=== PATIENT | male | born 1960 | race Caucasian/White ===

== ENCOUNTER 2025-03-18 12:35 | Emergency (ER) | payer OTHER, SELFPAY ==
[2025-03-18 12:52] VITALS: BP 148/65; PULSE 64; TEMP 37.1; O2SAT 98; BMI 36.3
--- NOTE | 2025-03-18 12:59 | XR_ITS ---
[address] [address] Patient Name: HANK CORRAL MRN: [id number] date: 1960 Sex: M Assigned Patient Location: ED.MAIN Current Patient Location: ED.MAIN Accession/Order Number: [id number] Exam Date: 03/18/2025 13:27 Report Date: 03/18/2025 14:12 At the request of: APRIL HERNANDEZ DO Procedure: XR knee RT 4V 4 views right knee plain film COMPARISON: None HISTORY: Right knee pain. Popping sensation. ACUTE FINDINGS: No acute findings DEGENERATIVE CHANGE: Mild degenerative changes SOFT TISSUE FINDINGS: Unremarkable JOINT EFFUSION: None POSTOP CHANGES: None BONE MINERALIZATION: Adequate XR/XR knee RT 4V IMPRESSION: No acute findings Impression dictated by: Yair Burr M.D. 03/18/2025 2:12 PM Dictation Location: [facility] Electronically authenticated by: [id number] Y Date: 03/18/2025 14:12
--- OUTSIDE RECORDS SUMMARY | 2025-03-18 13:30 | XMS_ITS | Clinical Summary ---
Author Organization [employer] tem Address [id number] [address] [place] [address] Care Team Providers Care Employment Evaluator/Case Manager Name Role Phone Lissy Schwartz MD Primary Care Provider [phone] Allergies Active AllergyReactionsCriticalityNoted AjxpKywrqrzrDjkaojdeeka83/23/2017 Pt said he has had since childhood, unsure of reaction Medications MedicationSigDispense QuantityRefillsLast FilledStart DateEnd DateStatus simvastatin (ZOCOR) 40 mg tablet Take 1 tablet (40 mg total) by mouth nightly.Active insulin aspart U-100 (NovoLOG) 100 unit/mL (3 mL) insulin pen Inject under the skin. SLIDING SCALE: BELOW 120=NO 120-175=3U 175-225=6U 225-UP=8UActive lisinopril (PRINIVIL,ZESTRIL) 40 mg tablet Take 1 tablet (40 mg total) by mouth in the morning.Active pen needle, diabetic 32 gauge x 1/6 needle by miscellaneous route. 1 injection 4x dailyActive cholecalciferol, vitamin D3, 25 mcg (1,000 unit) capsule Take 1 capsule (1,000 Units total) by mouth in the morning.Active cinnamon bark 500 mg capsule Take 1 capsule (500 mg total) by mouth in the morning.Active omega 7-qdz-bis-fish oil (FISH OIL) 1,000 mg (120 mg-180 mg) capsule Take 1 capsule by mouth in the morning.Active coenzyme Q10 100 mg capsule Take 1 capsule (100 mg total) by mouth in the morning.Active multivit-mins/iron/folic/lycop (CENTRUM MEN ORAL) Take by mouth.Active potassium 99 mg tablet Take 1 tablet (99 mg total) by mouth in the morning.Active insulin glargine (LANTUS, BASAGLAR) 100 unit/mL (3 mL) insulin pen Pt reports current dose = 25 units in the AM, 31 units at bedtimeActive semaglutide 1 mg/dose (2 mg/1.5 mL) pen injector Inject 1 mg under the skin every 7 days. Active blood-glucose sensor (DEXCOM G6 SENSOR MISC) by miscellaneous route. As directed to monitor blood sugarActive blood-glucose transmitter (DEXCOM G6 TRANSMITTER MISC) by miscellaneous route. As directed to monitor blood sugarActive pioglitazone (ACTOS) 15 mg tablet Take 1 tablet (15 mg total) by mouth in the morning.1Active latanoprost (XALATAN) 0.005 % ophthalmic solution 1 drop nightly.Active Active Problems ProblemNoted DateDiagnosed DateType 1 diabetes mellitus without complication 2Diabetes fehesbno03/28/2020 Immunizations ImmunizationAdministration DatesNext DueCovid-19, Mrna, Lnp-s, Bivalent, Pf, 50mcg/0.5ml or 25mcg/0.25ml03/13/2022Influenza, Injectable, Mdck, Preservative Free, Quad11/16/2021,02/01/2021Influenza, Sdzicgbhyrm80/29/2020,01/19/2019 Pneumococcal, Tjvzomylzed75/29/2013 Family History Medical HistoryRelationNameCommentsDepressionDaughterCancerFatherSKINDiabetes FatherHeart diseaseFatherHypertensionFatherHypertensionMotherThyroid disease MotherDepressionSonRelationNameStatusCommentsDaughterFatherMotherSon Social History Tobacco UseTypesPacks/DayYears UsedDateSmoking Tobacco: ImdkcaIvrpdtzojk4Jfmt: 10/18/2012Smokeless Tobacco: NeverAlcohol UseStandard Drinks/WeekCommentsYes0 (1 standard drink = 0.6 oz pure alcohol)ChildcareAnswerDate RecordedChildcare Qqbimog7609/01/2018EmploymentAnswerDate HfsnknsbFpmqmbmuasNjsmtpv84/12/2019Purpose - LifeAnswerDate RecordedPurpose and direction in qumzWsxietu39/28/2021ex and Gender InformationValueDate RecordedSex Assigned at CbijuCtxc68/28/2020 12:15 PM EDTLegal YmpIkzl5410/26/2014 11:45 AM EDTGender PslgmrrrSwbi07/28/2020 12:15 PM EDTSexual VpciqqhuymcUsuixork04/28/2020 12:15 PM EDT Last Filed Vital Signs Vital SignReadingTime TakenCommentsBlood Zzbqfuhc145/70004/30/2022 9:22 AM EST Pjrus047504/30/2022 9:22 AM ESTTemperature--Respiratory Rate--Oxygen Saturation-- Inhaled Oxygen Concentration--Thbiar611.2 kg (265 lb)04/30/2022 9:22 AM EST Qliote918.8 cm (5' 10 )04/30/2022 9:22 AM ESTBody Mass Index38.02004/30/2022 9:22 AM EST Plan of Treatment Health MaintenanceDue DateLast DoneCommentsStatin Use: Xsbocaoo80/06/1961 Depression Nbtxfmosu28/06/1973Tobacco Kyrnrsqfm47/06/1973DTaP,Tdap and Td Vaccines (1 - Tdap)06/27/1979RSV ( or age 60+ yrs) (1 - Risk 50-74 years 1-dose series)2010Zoster (Shingles) Vaccine (1 of 2)2010Diabetic Foot ExamDiabetic Ophthalmology Exam/03/2022, 05/17/2021, 04/25/2020, Additional history existsAdult BMI Goljdrdsb66/08/2024 04/30/2022OVID-19 Vaccine ( season)/, 02/11/2021, 07/04/2020, Additional history existsInfluenza Pibhkuc21/02/2024, 03/19/2023, 11/16/2021, Additional history exists Medical Devices Not on file Procedures Procedure NamePriorityDate/TimeAssociated DiagnosisCommentsHM DIABETES EYE EXAM Tdwbinp8604/23/2022HM DIABETES FOOT TNNUMvoyamr56/14/2019from Last 3 Months or Most Recently Relevant to Health Maintenance Results * DIABETES EYE EXAM (04/23/2022)Specimen (Source)Anatomical Location / LateralityCollection Method / VolumeCollection TimeReceived Time04/23/2022 Narrative Authorizing ProviderResult TypeResult StatusScanning Provider ExternalHEALTH MAINTENANCEFinal ResultPerforming OrganizationAddressCity/State/ZIP CodePhone Number MANUALLY TRANSCRIBED RESULTS * DIABETES FOOT EXAM (01/03/2019)Specimen (Source)Anatomical Location / LateralityCollection Method / VolumeCollection TimeReceived Time01/03/2019 Narrative Authorizing ProviderResult TypeResult StatusTondrjair Martinez LOOM MECHANIC-NPHEALTH MAINTENANCEEdited Result - FinalPerforming OrganizationAddressCity/State/ZIP CodePhone Number MANUALLY TRANSCRIBED RESULTS from Last 3 Months or Most Recently Relevant to Health Maintenance Insurance Care Teams Team MemberRelationshipSpecialtyStart DateEnd Lissy Schwartz MD [address] [place] [address] PCP - GeneralFamily Medicine07/06/24
--- OUTSIDE RECORDS SUMMARY | 2025-03-18 13:30 | XMS_ITS | Clinical Summary ---
Author Organization [facility] Address [address] [place] [address] Care Team Providers Care Childbirth Educator Name Role Phone Lissy Schwartz MD Primary Care Provider [phone] Allergies Active AllergyReactionsCriticalityNoted DateCommentsMetformin [facility]11/25/2022 Other Reaction(s): diarrhea LoxfeypxqevMmbfUvu51/23/2017 Pt said he has had since childhood, unsure of reaction Medications MedicationSigDispense QuantityRefillsLast FilledStart DateEnd DateStatus cholecalciferol (Vitamin D-3) 25 MCG (1000 UT) capsule Take 1,000 Units by mouth in the morning.Active cinnamon 500 MG capsule OrallyActive coenzyme Q-10 100 MG capsule Take 100 mg by mouth in the morning.Active ibuprofen 200 MG tablet every 8 (eight) hours.Active Insulin Infusion Pump Supplies (AutoSoft XC Infusion Set) [facility] 10/25/2022ctive Insulin Infusion Pump Supplies (T:slim X2 3mL Cartridge) [facility] 10/25/2022ctive Multiple Vitamins-Minerals (Centrum Men) tablet OrallyActive omega-3 (Fish Oil) 1000 MG capsule 1 capsule 1 (one) time each day at the same time.Active Potassium Gluconate 2.5 MEQ tablet Take 99 mg by mouth in the morning.Active Basaglar KwikPen 100 UNIT/ML pen PLEASE SEE ATTACHED FOR DETAILED TLOZJCURPY61/27/2025Active Insulin Lispro 100 UNIT/ML solution Per pump06/14/2024tive Continuous Glucose Sensor (Dexcom G7 Sensor) [facility] 06/28/2021ctive Ozempic, 2 MG/DOSE, 8 MG/3ML solution pen-injector INJECT 2 MG (0.75 ML) SUBCUTANEOUSLY EVERY WEEK5Active hbwdnaty-goylypzyy-nehNJNALcwnsl (Maxitrol) 0.1 % ophthalmic suspension Indications:Acute otitis externa of right ear, unspecified type4 drop right ear tid x 7 days 10 mL 5Active lisinopril 40 MG tablet Indications:Essential (primary) hypertensionTake 1 tablet (40 mg) by mouth in the morning. 90 tablet 1115Active simvastatin (Zocor) 40 MG tablet Indications:Mixed hyperlipidemiaTake 1 tablet (40 mg) by mouth in the evening 90 tablet 110503/6Active Active Problems ProblemNoted DateDiagnosed DateFormer cigarette zkmwqp1506/14/2024Glaucoma, right eye06/14/2024 Overview (07/06/2024): Member reports he follows with ophthalmology Routine health eakvjkkqsqa27/25/2025Takes dietary reuudrazssg54/25/2025Vitamin D logfkpvfch91/25/2025Mixed bcmnajtgqyqipf25/05/5468Ayuvfzo13/05/2023rimary ykrfvlfojcqa12/05/2023Mixed diabetic hyperlipidemia associated with type 1 diabetes oddvmmrv09/05/2023Type 1 diabetes mellitus without complication, 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10/25/2021 Resolved Problems ProblemNoted DateDiagnosed DateResolved DateType 2 diabetes mellitus without zuxpojbhtlunc63/05/202304/Type 1 diabetes mellitus without complications /Diabetes flwjewog32 Encounters DateTypeDepartmentCare IfsiBfyhsfccbgf86/01/2025Refill [facility] [address] [place] [address] Lissy Schwartz MD Essential (primary) hypertension; Mixed rqjwblbmotokdx25/29/2025Orders Only [address] [place] [place] [address] Lissy Schwartz MD from Last 3 Months Immunizations ImmunizationAdministration DatesNext DueInfluenza Whole01/05/2012Influenza, Xotgkjzpnuh12/27/2022,02/01/2021,01/19/2020,01/19/2019Influenza, injectable, MDCK, preservative free, cskynllgxobb66/27/2022,02/01/2021Influenza, injectable, fgdciftzbdqj50/08/2019Influenza, injectable, quadrivalent, preservative free 03/19/2023,01/19/2020,12/11/2017,12/23/2016,11/29/2015Influenza, seasonal, mrgpixpkys43/14/2015,12/23/2013Influenza, seasonal, injectable, preservative free12/03/2023,11/29/2015Pneumococcal, Ledllghhcro33/29/4528YFPL-SAK-4 (COVID- 19) vaccine, mRNA, spike protein, LNP, bivalent, PF03/13/2022 Family History Medical HistoryRelationNameCommentsArthritisBrother 1Dave foodArthritisBrother 2 Roly foodDiabetesFatherNorman foosHeart diseaseFatherNorman foosDiabetesMaternal GrandmotherEva garlandArthritisMotherJean foosDiabetesMotherJean foosHeart diseaseMotherJean foosKidney diseaseMotherJean foosRheum arthritisMotherJean foosArthritisSister 1Ann renzArthritisSister 2Ann renzRelationNameStatusComments Brother 1Dave foodAliveBrother 2Dave foodAliveFatherNorman foosAliveMaternal GrandmotherEva garlandAliveMotherJean foosAliveSister 1Ann renzAliveSister 2Ann renzAlive Social History Tobacco UseTypesPacks/DayYears UsedDateSmoking Tobacco: CbgxeaPqtyqxymlf81Chkk: 07/11/2024Smokeless Tobacco: Never Tobacco Cessation:Counseling Given: Not Answered Alcohol UseStandard Drinks/WeekCommentsNot Currently0 (1 standard drink = 0.6 oz pure alcohol)caffeine intake: 3-4 cans of ijtmX5657 Health LiteracyAnswerDate RecordedHow often do you need to have someone help you when you read instructions, pamphlets, or other written material from your doctor or pharmacy? Never06/28/2024Humiliation, Afraid, Rape, and Kick questionnaireAnswerDate RecordedWithin the last year, have you been afraid of your partner or ex-partner?No03/12/2023Within the last year, have you been humiliated or emotionally abused in other ways by your partner or ex-partner?No03/12/2023 Within the last year, have you been kicked, hit, slapped, or otherwise physically hurt by your partner or ex-partner?No03/12/2023Within the last year, have you been raped or forced to have any kind of sexual activity by your part ner or ex-partner?No03/12/2023Social Connection and Isolation PanelAnswerDate RecordedIn a typical week, how many times do you talk on the phone with family, friends, or neighbors?Three times a week06/28/2024How often do you get together with friends or relatives?Twice a week06/28/2024How often do you attend uatsdin or baptist services?1 to 4 times per year06/28/2024Do you belong to any clubs or organizations such as uatsdin groups, unions, fraternal or athletic groups, or school groups?No06/28/2024How often do you attend meetings of the clubs or organizations you belong to?Never06/28/2024re you , , , , never , or living with a partner?Sjsjdio5306/28/2024UDIT-C AnswerDate RecordedQ1: How often do you have a drink containing alcohol?Monthly or less06/28/2024Q2: How many drinks containing alcohol do you have on a typical day when you are drinking?1 or Q3: How often do you have six or more drinks on one occasion?Never06/28/2024Overall Financial Resource Strain (CARDIA) AnswerDate RecordedHow hard is it for you to pay for the very basics like food, housing, medical care, and heating?Not hard at all06/28/2024PHQ-2AnswerDate RecordedPatient Health Questionnaire-2 Bnvyr941Fincentral valley medical center [place] of Occupational [facility] - Occupational Stress QuestionnaireAnswerDate RecordedDo you feel stress - tense, restless, nervous, or anxious, or unable to sleep at night because yourmind is troubled all the time - these days?Not at all06/28/2024 Exercise Vital SignAnswerDate RecordedOn average, how many days per week do you engage in moderate to strenuous exercise (like a brisk walk)?7 days06/28/2024On average, how many minutes do you engage in exercise at this level?30 min 06/28/2024Hunger Vital SignAnswerDate RecordedWithin the past 12 months, you worried that your food would run out before you got the money to buymore.Never true06/28/2024Within the past 12 months, the food you bought just didn't last and you didn't have money to get more.Never true06/28/2024PRAPARE - TransportationAnswerDate RecordedIn the past 12 months, has lack of transportation kept you from medical appointments or from getting medications?No 06/28/2024In the past 12 months, has lack of transportation kept you from meetings, work, or from getting things needed for daily living?No06/28/2024 Housing Stability Vital SignAnswerDate RecordedIn the last 12 months, was there a time when you were not able to pay the mortgage or rent on time?No03/12/2023In the last 12 months, how many places have you lived?In the last 12 months, was there a time when you did not have a steady place to sleep or slept in [facility] (including now)?No03/12/2023Housing Stability Vital SignAnswerDate RecordedIn the last 12 months, was there a time when you were not able to pay the mortgage or rent on time?No06/28/2024In the past 12 months, how many times have you moved where you were living?t any time in the past 12 months, were you homeless or living in a assisted (including now)?No06/28/2024Sex and Gender InformationValueDate RecordedSex Assigned at HscpxPbao69/19/2023 4:17 PM EDTLegal BdpKhoa1006/04/2022 7:40 PM EDTGender ByjypotgNgkh15/15/2023 7:40 PM EDTSexual UnixhdpexalXcrrkgmt44/19/2023 4:17 PM EDT Last Filed Vital Signs Vital SignReadingTime TakenCommentsBlood Hbykalzk874/6608 10:19 AM EDT Tornw2916 10:19 AM EDTTemperature--Respiratory Fabc429811/02/2024 10:19 AM EDTOxygen Mbtaitqhns27%11/02/2024 10:19 AM EDTInhaled Oxygen Concentration-- Ffeica891 kg (251 lb 6.4 oz)11/02/2024 10:19 AM JIOInppen797.1 cm (5' 10.5 ) 11/02/2024 10:19 AM EDTBody Mass Index35.56011/02/2024 10:19 AM EDT Plan of Treatment DateTypeDepartmentCare Team (Latest Contact Info)Azalyzaoywh16/21/2026 10:00 AM EDTOffice Visit [facility] [address] [place] [phone] Lissy Schwartz MD [address] [place], [place] [phone] Health MaintenanceDue DateLast DoneCommentsCT Pdqohhnmqgkk60/06/1961FIT-DNA 1960FIT1960FOBT1960 4880Hjgbscvovymxl55/06/1961neumococcal Vaccine: Pediatrics (0 to 5 Years) and At-Risk Patients (6 to 64 Years) (1 of 2 - PCV)ColonoscopyColorectal Cancer Fgrcskgtp62/12/2025Influenza Vaccine (#1), 03/19/2023, 11/16/2021, Additional history existsDiabetes: Hemoglobin A1C12/30/2024 09/29/2024, 06/15/2024, 05/19/2023, Additional history existsDiabetes: Urine Protein Ppqayxalf37, 03/11/2022, 03/10/2022, Additional history existsDiabetes: Retinopathy Ruymnqftm72/26/71547812/16/2024, 05/27/2024, 12/03/2022, Additional history exists Procedures Procedure NamePriorityDate/TimeAssociated DiagnosisCommentsDIABETIC RETINOPATHY SCREENING - OU - BOTH BIJKIgikeby41/26/2025 9:28 AM EDTHEMOGLOBIN E5UHmcjaqn 09/29/2024 12:37 PM EDT MICROALBUMIN / CREATININE URINE MDABTRupoxhi84/16/2025 12:30 PM EDT Type 1 diabetes mellitus without complication, 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 (HCC) BIPRAQLTQDWMlpevyx68/12/2015 12:00 PM EST from Last 3 Months or Most Recently Relevant to Health Maintenance Results * Diabetic Retinopathy Screening - OU - Both Eyes (12/16/2024 9:28 AM EDT) Anatomical RegionLateralityModalityHeadOther Narrative Authorizing ProviderResult TypeResult StatusLissy Schwartz MDOPHTH PHOTOGRAPHY Final Result * (ABNORMAL) Hemoglobin A1c (09/29/2024 12:37 PM EDT)ComponentValueRef RangeTest MethodAnalysis TimePerformed AtPathologist SignatureHEMOGLOBIN A1C8.1Comment: per Endo NoteSpecimen (Source)Anatomical Location / LateralityCollection Method / VolumeCollection TimeReceived TimeBloodVenous blood specimen / Unknown Narrative Authorizing ProviderResult TypeResult StatusLissy CRUMP BLOOD ORDERABLES Edited Result - Final * Microalbumin / creatinine urine ratio (07/06/2024 12:30 PM EDT)ComponentValue Ref RangeTest MethodAnalysis TimePerformed AtPathologist SignatureCREATININE, RANDOM PYPHY72736 - 320 mg/dLQUESTALBUMIN, URINE1.2See Note: mg/dLQUEST Comment: Reference Range: Reference Range Not established ALBUMIN/CREATININE RATIO, RANDOM URINE9<30 mg/g creatQUESTComment: The ADA defines abnormalities in albumin excretion as follows: Albuminuria Category ?Result (mg/g creatinine) Normal to Mildly increased <30 Moderately increased ? 30-299 Severely increased > OR = 300 The ADA recommends that at least two of three specimens collected within a 3-6 month period be abnormal before considering a patient to be within a diagnostic category. Specimen (Source)Anatomical Location / LateralityCollection Method / Volume Collection TimeReceived TimeUrineUrine specimen obtained by clean catch procedure / Cvchpac3807/06/2024 12:30 PM EDT07/06/2024 12:30 PM EDT Narrative Resulting Agency Comment Performing Organization Information ?Site ID: [id number] ?Name: [facility] ?Address: [address] [place] [address], [address] [place] [id number] ?Director: Gino Calloway MD Authorizing ProviderResult TypeResult Felix Schwartz MDLAB URINE ORDERABLES Final ResultPerforming OrganizationAddressCity/State/ZIP CodePhone Number QUEST * Colonoscopy (05/04/2014 12:00 PM EST)Anatomical RegionLateralityModality EndoscopySpecimen (Source)Anatomical Location / LateralityCollection Method / VolumeCollection TimeReceived Time05/04/2014 12:00 PM EST Narrative 12/20/2016 12:00 PM EDT PERFORMED AT [facility] LOCATION:[id number] Procedure Note CONVERSION, GENERIC - 08/07/2022 PERFORMED AT [facility] LOCATION:[id number] Authorizing ProviderResult TypeResult Fleix Schwartz MDENDOSCOPY PROCEDURE ORDERABLESFinal Result from Last 3 Months or Most Recently Relevant to Health Maintenance Insurance Care Teams Team MemberRelationshipSpecialtyStart DateEnd Date Lissy Schwartz MD [address] [place] [address] [facility] - [facility]07/29/22
--- NOTE | 2025-03-18 15:21 | ED.GENADUL1 ---
HPI HPI - General Adult General Chief complaint: Extremity Injury, Lower Stated complaint: R KNEE PAIN Time Seen by Provider: 03/18/25 12:48 Source: patient Mode of arrival: walk-in History of Present Illness HPI narrative: Patient is a 64-year-old male presenting to the emergency department for evaluation of right knee pain. The patient was walking his dog when a Rottweiler jumped on him. He did step back awkwardly and felt a pop in the right knee. Afterwards, he was still able to ambulate though he was having significant pain in the right knee. He denies any numbness/tingling or weakness in the right lower extremity. No prior surgeries to the area. He is otherwise asymptomatic without any other injuries. Related Data Allergies Allergy/AdvReac Type Severity Reaction Status Date / Time Penicillins Allergy Unknown Unknown Verified 03/18/25 12:52 Review of Systems ROS Status of ROS 10 or more systems reviewed and unremarkable except as noted in history and below PFSH PFSH Social History Little interest or pleasure in doing things: not at all Feeling down, depressed, or hopeless: not at all Exam Narrative Exam Narrative: CONSTITUTIONAL: Well-appearing, answering questions and following commands appropriately SKIN: Was warm and dry. EYES: Sclerae white. EARS, NOSE, THROAT: Moist oral mucosa. RESPIRATORY: Nonlabored respiration CARDIOVASCULAR: Normal rate and regular rhythm. 2+ DP pulse on the right. GASTROINTESTINAL: Abdomen is nondistended. MUSCULOSKELETAL: There is tenderness to palpation throughout the lateral aspect of the right knee. There is full range of motion in the throughout the right knee. The knee joint is stable through ligamentous testing including anterior/posterior drawer and varus/valgus stress test. Able to ambulate with a mildly antalgic gait. There is no joint effusion or overlying erythema/induration/drainage/or other infectious changes. NEUROLOGIC: Patient is awake and alert. Equal strength and sensation to light touch in the bilateral lower extremities. Constitutional Vital Signs, click to edit/add: Last Vital Signs Temp 98.7 F 03/18/25 12:52 Pulse 64 03/18/25 12:52 Resp 18 03/18/25 12:52 BP 148/65 H 03/18/25 12:52 Pulse Ox 98 03/18/25 12:52 O2 Del Method Room Air 03/18/25 12:52 Course Vital Signs Vital signs: Vital Signs Temperature 98.7 F 03/18/25 12:52 Pulse Rate 64 03/18/25 12:52 Respiratory Rate 18 03/18/25 12:52 Blood Pressure 148/65 H 03/18/25 12:52 Pulse Oximetry 98 03/18/25 12:52 Oxygen Delivery Method Room Air 03/18/25 12:52 Temperature 98.7 F 03/18/25 12:52 Pulse Rate 64 03/18/25 12:52 Respiratory Rate 18 03/18/25 12:52 Blood Pressure 148/65 H 03/18/25 12:52 Pulse Oximetry 98 03/18/25 12:52 Oxygen Delivery Method Room Air 03/18/25 12:52 Medical Decision Making MDM Narrative Medical decision making narrative: Patient is a 64-year-old male presenting to the emergency department with a right knee injury earlier today. He is afebrile and hemodynamically stable. Examination of the right knee as described above. The extremity is neurovascularly intact with full range of motion. The joint is stable with ligamentous testing. Differential diagnosis includes meniscus or ligamentous sprain/tear, and less likely acute fracture or dislocation. X-rays were obtained. X-rays of the right knee independently reviewed and interpreted by myself and radiology demonstrated no acute osseous abnormalities. I do believe the patient is stable for discharge. Patient's presentation is most likely consistent with knee sprain, possible meniscus/ligamentous injury. They were instructed to follow up with orthopedic surgery within a week should his symptoms persist. Return precautions were given including any new or worsening symptoms. He was placed in an Randy bandage and given RICE precautions. I recommended NSAIDs for pain control. Patient understands and agrees to the plan. FINAL IMPRESSION: #Acute right knee sprain DISPOSITION: Discharged home CONDITION: Good Imaging Data Right knee xray: Attestation: I personally reviewed and interpreted this imaging study as follows: Radiologist's impression: ITS Impressions Knee X-Ray 03/18/25 12:59 IMPRESSION: No acute findings Impression dictated by: Yair Burr M.D. 03/18/2025 2:12 PM Dictation Location: Compact Particle Acceleration Electronically authenticated by: [id number] Y Date: 03/18/2025 14:12 Discharge Plan Discharge Chief Complaint: Extremity Injury, Lower Clinical Impression: Right knee sprain Patient Disposition: Home, Self-Care Time of Disposition Decision: 14:33 Condition: Good Mode of Transportation: Private Vehicle Print Language: Persian Instructions: Knee Sprain (ED), P.R.I.C.E. Treatment (ED) Referrals: Abhi Chandler DO [Physician, Orthopedics] - 1 week JUSTINO SCHMIDT [Primary Care Provider, Family Practice] - 1 week Discharge Date/Time: 03/18/25 14:39
== END 2025-03-18 14:39 | disposition home or self-care (01) ==
PROVIDERS: Emergency Provider Student in an Organized Health Care Education/Training Program; PCP Family Medicine
DX: S83.91XA Sprain of unspecified site of right knee, initial encounter (principal); X50.1XXA Overexertion from prolonged static or awkward postures, initial encounter
CPT/HCPCS: 73564; 99283